=== PATIENT | male | born 1945 | race Caucasian/White ===

== ENCOUNTER 2018-11-14 09:08 | Emergency (ER) | payer OTHER ==
[~2018-11-14] VITALS: Ht 193 cm; Wt 116.6 kg
[2018-11-14 09:09] VITALS: BP 134/73
--- NOTE | 2018-11-16 17:44 | EKG ---
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 : 1945 Requested By: Becki Rico Order Number: [id number] MD: Ryan Baxter Measurements Intervals [place] Rate: 83 P: 48 [place]: 183 QRS: -26 QRSD: 87 T: 17 QT: 388 QTc: 456 Interpretive Statements Sinus rhythm Inferior infarct, old Baseline wander in lead(s) V5 No previous ECG available for comparison Electronically Signed On 11-16-2018 17:44:35 CDT by Ryan Baxter [email or web address] ��������������������������������������������� <ELECTRONICALLY SIGNED> ���������������������������������������� By: Ryan Baxter MD ��������������������������������������������� 11/16/18 1744 0924 3 Ryan Baxter MD /AVERY
== END 2018-11-14 10:30 | disposition left against medical advice (07) ==
LOC: ER 09:08
DX: E11.22 Type 2 diabetes mellitus with diabetic chronic kidney disease (principal); N18.6 End stage renal disease; R06.00 Dyspnea, unspecified; F17.210 Nicotine dependence, cigarettes, uncomplicated; Z99.2 Dependence on renal dialysis

== ENCOUNTER 2018-11-19 08:33 | Emergency (ER) | payer OTHER ==
[~2018-11-19] VITALS: Ht 180.3 cm; Wt 107.0 kg
[2018-11-19 08:59] LABS: URINE BILIRUBIN NEGATIVE (Negative); URINE BLOOD 1+ (Negative); URINE CLARITY CLEAR; URINE COLOR YELLOW; URINE GLUCOSE-RANDOM* NEGATIVE (Negative); URINE KETONES NEGATIVE (Negative); URINE LEUKOCYTES-REFLEX NEGATIVE (Negative); URINE NITRITE-REFLEX NEGATIVE (Negative); URINE PROTEIN (DIPSTICK) 2+ (Negative); URINE UROBILINOGEN 0.2 E.U./dl (0.2-1.0)
[2018-11-19 09:13] LABS: BACTERIA-REFLEX None Seen /HPF (None Seen); CASTS None Seen /LPF (None Seen); CRYSTALS None Seen /LPF (None Seen); SQUAMOUS 0-3 Few /LPF (0-3); URINE RBC 0-2 Rare /HPF (0-2); URINE WBC-REFLEX None Seen /HPF (0-5)
[2018-11-19 09:47] LABS: ABSOLUTE NEUTROPHILS 1.9 thou/uL (1.4-8.2); BASOPHILS 0.7 % (0.0-2.0); EOSINOPHILS 4.2 % (0.0-3.0); HEMATOCRIT 35.2 % (42.0-52.0); HEMOGLOBIN 11.8 gm/dL (14.0-18.0); LYMPHOCYTES 25.4 % (24.0-44.0); MCH 27.7 pg (26.0-34.0); MCHC 33.4 g/dL (28.0-37.0); MONOCYTES 9.5 % (1.0-8.0); PLATELET COUNT 136 thou/uL (150-400); POLYS 60.2 % (36.0-66.0); RBC 4.25 mil/uL (4.50-6.00); RDW 16.2 % (10.5-14.5); WBC 3.2 thou/uL (4.0-11.0)
[2018-11-19 09:51] LABS: CALCIUM 7.8 mg/dL (8.5-10.1); CREATININE 7.4 mg/dL (0.7-1.3); POTASSIUM 4.2 mmol/L (3.5-5.1)
[2018-11-19 09:53] LABS: MAGNESIUM 1.5 mg/dL (1.8-2.4); PHOSPHORUS 4.6 mg/dL (2.5-4.9)
[2018-11-19 09:56] LABS: ALBUMIN 2.9 g/dL (3.4-5.0); TOTAL BILIRUBIN 0.5 mg/dL (<0.1-1.0)
[2018-11-19] MEDS ORDERED: TYLENOL325 MG PO (10:46)
[2018-11-19] MEDS ORDERED: LIPITOR10 MG PO (10:46)
[2018-11-19] MEDS ORDERED: COREG25 MG PO (10:47)
[2018-11-19] MEDS ORDERED: BETAMETHASONE D15 G3 TOP (10:47)
[2018-11-19] MEDS ORDERED: NEURONTIN600 MG PO (10:48)
[2018-11-19] MEDS ORDERED: LASIX 80 MG TAB80 MG PO (10:48)
[2018-11-19] MEDS ORDERED: MUCUS ER600 M1 PO (10:49)
[2018-11-19] MEDS ORDERED: HUMULIN R100 UNIT/M SUBQ (10:50)
[2018-11-19] MEDS ORDERED: SYNTHROID50 MCG PO (10:50)
[2018-11-19] MEDS ORDERED: HUMULIN 70100 UNIT/2 SUBQ (10:50)
[2018-11-19] MEDS ORDERED: PROTONIX40 M1 PO (10:50)
[2018-11-19 11:48] VITALS: BP 122/61
[2018-11-20 07:13] LABS: HAV IgM AB (ANTI-HAV IgM) Negative (Negative); HEPATITIS B SURFACE AG Negative (Negative); HEPATITIS C VIRUS AB >11.0 (0.0-0.9)
--- NOTE | 2018-11-20 18:18 | EKG ---
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 : 1945 Requested By: Teofilo Jett Order Number: [id number] MD: Aidan Mcgarry Measurements Intervals [place] Rate: 77 P: 48 [place]: 170 QRS: -26 QRSD: 87 T: 5 QT: 451 QTc: 511 Interpretive Statements Sinus rhythm Inferior infarct, old Prolonged QT interval Compared to ECG 11/14/2018 09:24:15 Prolonged QT interval now present Electronically Signed On 11-20-2018 18:18:32 CDT by Aidan Mcgarry [email or web address] ��������������������������������������������� <ELECTRONICALLY SIGNED> ���������������������������������������� By: Aidan Mcgarry MD, [facility] ��������������������������������������������� 11/20/18 1818 1 Aidan Mcgarry MD, [facility] /EPI
== END 2018-11-19 11:51 | disposition home or self-care (01) ==
LOC: ER 08:33
PROVIDERS: Emergency Medicine
DX: N18.6 End stage renal disease (principal); Z99.2 Dependence on renal dialysis; F17.210 Nicotine dependence, cigarettes, uncomplicated

== ENCOUNTER 2019-05-07 12:02 | Emergency (ER) | payer OTHER ==
[~2019-05-07] VITALS: Ht 193 cm; Wt 123.4 kg
[~2019-05-07 12:02] MED LIST: BETAMETHASONE D15 G3 TOP; COREG25 MG PO; HUMULIN 70100 UNIT/2 SUBQ; HUMULIN R100 UNIT/M SUBQ; LASIX 80 MG TAB80 MG PO; LIPITOR10 MG PO; MUCUS ER600 M1 PO; NEURONTIN600 MG PO; PROTONIX40 M1 PO; SYNTHROID50 MCG PO; TYLENOL325 MG PO
[2019-05-07 12:51] LABS: ABSOLUTE NEUTROPHILS 2.1 thou/uL (1.4-8.2); BASOPHILS 1.1 % (0.0-2.0); EOSINOPHILS 4.3 % (0.0-3.0); HEMATOCRIT 36.3 % (42.0-52.0); LYMPHOCYTES 24.5 % (24.0-44.0); MCH 27.7 pg (26.0-34.0); MONOCYTES 6.6 % (1.0-8.0); PLATELET COUNT 155 thou/uL (150-400); POLYS 63.5 % (36.0-66.0); RBC 4.32 mil/uL (4.50-6.00); RDW 15.1 % (10.5-14.5); WBC 3.4 thou/uL (4.0-11.0)
[2019-05-07 13:01] LABS: ANION GAP 11 mmol/L (7-16); BUN 54 mg/dL (7-18); CALCIUM 8.7 mg/dL (8.5-10.1); CHLORIDE 106 mmol/L (98-107); CO2 27 mmol/L (21-32); CREATININE 5.7 mg/dL (0.7-1.3); GLUCOSE 130 mg/dL (74-106); POTASSIUM 3.8 mmol/L (3.5-5.1); SODIUM 144 mmol/L (136-145)
[2019-05-07 13:11] LABS: ALBUMIN 3.1 g/dL (3.4-5.0); DIRECT BILIRUBIN 0.2 mg/dL (<0.1-0.2); SGOT 15 U/L (15-37); SGPT 22 U/L (30-65); TOTAL BILIRUBIN 0.5 mg/dL (<0.1-1.0); TOTAL PROTEIN 7.3 g/dL (6.4-8.2); TROPONIN-I <0.06 ng/mL (<0.06)
[2019-05-07 13:12] LABS: URINE BILIRUBIN NEGATIVE (Negative); URINE BLOOD TRACE (Negative); URINE CLARITY CLEAR; URINE COLOR YELLOW; URINE GLUCOSE-RANDOM* NEGATIVE (Negative); URINE KETONES NEGATIVE (Negative); URINE LEUKOCYTES-REFLEX NEGATIVE (Negative); URINE NITRITE-REFLEX NEGATIVE (Negative); URINE PROTEIN (DIPSTICK) 2+ (Negative); URINE SPECIFIC GRAVITY 1.025 (1.005-1.035)
--- NOTE | 2019-05-07 13:16 | EKG ---
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: : 1945 Requested By: Sneha Fountain Order Number: [id number] MD: Aidan Mcgarry Measurements Intervals [place] Rate: 75 P: 58 [place]: 179 QRS: -2 QRSD: 101 T: 24 QT: 447 QTc: 500 Interpretive Statements Sinus rhythm Possible inferior infarct, age indeterminate Borderline prolonged QT interval Compared to ECG 11/19/2018 08:52:41 No significant change was found Electronically Signed On 05-07-2019 13:15:40 SOCIAL MEDIA SENIOR ASSOCIATE by Aidan Mcgarry [email or web address] <ELECTRONICALLY SIGNED> By: Aidan Mcgarry MD, [facility] 05/07/19 1315 1206 1206 Aidan Mcgarry MD, [facility] /EPI
[2019-05-07 13:24] LABS: BACTERIA-REFLEX 1-9 Few /HPF (None Seen); CASTS None Seen /LPF (None Seen); CRYSTALS None Seen /LPF (None Seen); SQUAMOUS 0-3 Few /LPF (0-3); URINE RBC 0-2 Rare /HPF (0-2); URINE WBC-REFLEX 0-5 Rare /HPF (0-5)
[2019-05-07 16:50] VITALS: BP 138/73
== END 2019-05-07 16:56 | disposition home or self-care (01) ==
LOC: ER 12:02
PROVIDERS: Emergency Medicine
DX: R07.89 Other chest pain (principal); E11.22 Type 2 diabetes mellitus with diabetic chronic kidney disease; N18.9 Chronic kidney disease, unspecified; F17.210 Nicotine dependence, cigarettes, uncomplicated; Z99.2 Dependence on renal dialysis; Z88.0 Allergy status to penicillin; Z79.4 Long term (current) use of insulin

== ENCOUNTER 2019-10-12 09:50 | Emergency (ER) | payer OTHER ==
[~2019-10-12] VITALS: Ht 193 cm; Wt 123.8 kg
[2019-10-12 10:21] LABS: URINE BLOOD 2+ (Negative); URINE CLARITY CLEAR; URINE COLOR YELLOW; URINE GLUCOSE-RANDOM* NEGATIVE (Negative); URINE KETONES TRACE (Negative); URINE LEUKOCYTES-REFLEX NEGATIVE (Negative); URINE NITRITE-REFLEX NEGATIVE (Negative); URINE PROTEIN (DIPSTICK) 3+ (Negative); URINE SPECIFIC GRAVITY 1.025 (1.005-1.035); URINE UROBILINOGEN 0.2 E.U./dl (0.2-1.0)
[2019-10-12 10:26] LABS: ICTOTEST (BILI CONFIRMATORY) Negative (Negative); URINE BILIRUBIN NEGATIVE (Negative)
[2019-10-12 10:30] LABS: SQUAMOUS 4-10 Moderate /LPF (0-3)
[2019-10-12 10:31] LABS: BACTERIA-REFLEX 1-9 Few /HPF (None Seen); CASTS None Seen /LPF (None Seen); CRYSTALS None Seen /LPF (None Seen); MUCUS 0-3 Light strn/LPF (None Seen); URINE RBC 3-10 Few /HPF (0-2); URINE WBC-REFLEX 6-15 Few /HPF (0-5)
[2019-10-12 10:34] LABS: ABSOLUTE NEUTROPHILS 4.7 thou/uL (1.4-8.2); BASOPHILS 0.7 % (0.0-2.0); EOSINOPHILS 2.7 % (0.0-3.0); HEMATOCRIT 35.5 % (42.0-52.0); HEMOGLOBIN 11.9 gm/dL (14.0-18.0); LYMPHOCYTES 13.1 % (24.0-44.0); MCH 29.1 pg (26.0-34.0); MCHC 33.6 g/dL (28.0-37.0); MCV 86.7 fL (80.0-100.0); MONOCYTES 7.4 % (1.0-8.0); PLATELET COUNT 247 thou/uL (150-400); POLYS 76.1 % (36.0-66.0); RBC 4.09 mil/uL (4.50-6.00); RDW 13.6 % (10.5-14.5); WBC 6.2 thou/uL (4.0-11.0)
[2019-10-12] MEDS ORDERED: NORVASC5 M1 PO (10:44)
[2019-10-12 10:45] LABS: CALCIUM 10.2 mg/dL (8.5-10.1); CREATININE 4.7 mg/dL (0.7-1.3); POTASSIUM 3.9 mmol/L (3.5-5.1)
[2019-10-12] MEDS ORDERED: COLACE100 MG PO (10:45)
[2019-10-12] MEDS ORDERED: ROCALTROL0.5 MCG PO (10:45)
[2019-10-12] MEDS ORDERED: GENTAMICIN OPH3.5 GM TOP (10:46)
[2019-10-12] MEDS ORDERED: MIRALAX119 GM PO (10:47)
[2019-10-12] MEDS ORDERED: SENSIPAR 30 MG30 M1 PO (10:47)
[2019-10-12] MEDS ORDERED: RENAL-VITE TAB0.8 MG PO (10:47)
[2019-10-12] MEDS ORDERED: EPCLUSA 400 MG1 EACH PO (10:48)
[2019-10-12] MEDS ORDERED: PERCOCET 5-3251 EACH PO (10:48)
[2019-10-12 10:52] LABS: ALBUMIN 3.2 g/dL (3.4-5.0); TOTAL BILIRUBIN 0.5 mg/dL (0.2-1.0); TOTAL PROTEIN 8.1 g/dL (6.4-8.2)
[2019-10-12] MEDS ORDERED: ONDANSETRON ODT8 MG PO (13:17)
[2019-10-12] MEDS ORDERED: PEPCID20 MG PO (13:17)
[2019-10-12] MEDS ORDERED: BACTRIM DS TAB1 EACH PO (13:19)
[2019-10-12 13:23] VITALS: BP 120/76
--- NOTE | 2019-10-13 08:43 | EKG ---
[facility] [place] [address] ELECTROCARDIOGRAM REPORT Name: CORAL ANN Room #: DEP 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 : 1945 Requested By: Amilcar Prado Order Number: [id number] MD: Burke Lucero Measurements Intervals [place] Rate: 101 P: 60 [place]: 154 QRS: -14 QRSD: 99 T: 1 QT: 395 QTc: 513 Interpretive Statements Sinus tachycardia Borderline T wave abnormalities Prolonged QT interval Compared to ECG 05/07/2019 12:06:25 T-wave abnormality now present Sinus rhythm no longer present Myocardial infarct finding no longer present Electronically Signed On 10-13-2019 8:42:43 CDT by Burke Lucero [email or web address] <ELECTRONICALLY SIGNED> By: Burke Lucero MD 10/13/19 0842 1032 1032 Burke Lucero MD /[facility]
== END 2019-10-12 13:24 | disposition home or self-care (01) ==
LOC: ER 09:50
PROVIDERS: Emergency Medicine
DX: R11.2 Nausea with vomiting, unspecified (principal); R19.7 Diarrhea, unspecified; E11.22 Type 2 diabetes mellitus with diabetic chronic kidney disease; N18.6 End stage renal disease; N39.0 Urinary tract infection, site not specified; F17.210 Nicotine dependence, cigarettes, uncomplicated; Z99.2 Dependence on renal dialysis; Z79.899 Other long term (current) drug therapy; Z79.4 Long term (current) use of insulin; Z88.0 Allergy status to penicillin

== ENCOUNTER 2020-03-02 07:51 | Emergency (ER) | payer OTHER ==
[~2020-03-02] VITALS: Ht 193 cm; Wt 113.4 kg
[2020-03-02 07:51] VITALS: BP 162/89
[~2020-03-02 07:51] MED LIST changes: +BACTRIM DS TAB1 EACH PO; +COLACE100 MG PO; +EPCLUSA 400 MG1 EACH PO; +GENTAMICIN OPH3.5 GM TOP; +MIRALAX119 GM PO; +NORVASC5 M1 PO; +ONDANSETRON ODT8 MG PO; +PEPCID20 MG PO; +PERCOCET 5-3251 EACH PO; +RENAL-VITE TAB0.8 MG PO; +ROCALTROL0.5 MCG PO; +SENSIPAR 30 MG30 M1 PO
[2020-03-02 08:28] LABS: ABSOLUTE NEUTROPHILS 2.8 thou/uL (1.4-8.2); BASOPHILS 1.2 % (0.0-2.0); EOSINOPHILS 3.7 % (0.0-3.0); HEMATOCRIT 39.4 % (42.0-52.0); HEMOGLOBIN 13.1 gm/dL (14.0-18.0); MCH 28.1 pg (26.0-34.0); MCHC 33.2 g/dL (28.0-37.0); MCV 84.5 fL (80.0-100.0); MONOCYTES 10.1 % (1.0-8.0); PLATELET COUNT 202 thou/uL (150-400); RBC 4.66 mil/uL (4.50-6.00); RDW 15.7 % (10.5-14.5)
[2020-03-02 08:40] LABS: CALCIUM 9.4 mg/dL (8.5-10.1); CREATININE 11.3 mg/dL (0.7-1.3); POTASSIUM 4.5 mmol/L (3.5-5.1)
[2020-03-02 08:46] LABS: ALBUMIN 3.4 g/dL (3.4-5.0); TOTAL BILIRUBIN 0.5 mg/dL (0.2-1.0)
[2020-03-02 10:04] VITALS: BP 127/83
[2020-03-02 10:05] LABS: PROTIME 10.3 Seconds (9.3-11.4)
--- NOTE | 2020-03-02 10:56 | NUR ---
TALKED WITH SIMONE AT [facility] WHO CONFIRMED THE PT HAS AN APPOITMENT ALREADY SCHEDULED FOR 1545 TODAY. WE CONFIRMED THE PT WILL BE THERE AT THAT TIME.
[2020-03-02 11:32] LABS: TSH 0.527 uIU/mL (0.358-3.740)
[2020-03-02 13:05] VITALS: BP 133/75
== END 2020-03-02 13:05 ==
LOC: ER 07:51 → EROBS 10:08 → ER 13:05
PROVIDERS: Emergency Medicine; Nurse Practitioner
DX: T82.49XA Other complication of vascular dialysis catheter, initial encounter (principal); E87.0 Hyperosmolality and hypernatremia; E11.22 Type 2 diabetes mellitus with diabetic chronic kidney disease; I12.0 Hypertensive chronic kidney disease with stage 5 chronic kidney disease or end stage renal disease; N18.6 End stage renal disease; E11.42 Type 2 diabetes mellitus with diabetic polyneuropathy; E78.5 Hyperlipidemia, unspecified; E03.9 Hypothyroidism, unspecified; F17.210 Nicotine dependence, cigarettes, uncomplicated; Z79.01 Long term (current) use of anticoagulants; Z79.899 Other long term (current) drug therapy; Z79.2 Long term (current) use of antibiotics; Z79.4 Long term (current) use of insulin; Z88.0 Allergy status to penicillin; Z99.2 Dependence on renal dialysis; Y83.8 Other surgical procedures as the cause of abnormal reaction of the patient, or of later complication, without mention of misadventure at the time of the procedure; Y92.89 Other specified places as the place of occurrence of the external cause